=== PATIENT | female | born 1975 | race Caucasian/White ===

== ENCOUNTER 2023-06-30 14:14 | Outpatient (CLI) | payer OTHER | END 2023-06-30 14:15 | disposition home or self-care (01) | LOC: CSHULT 14:14 | PROVIDERS: ATTEND Internal Medicine | DX: R59.9 Enlarged lymph nodes, unspecified (principal) | CPT/HCPCS: 76999 ==

== ENCOUNTER 2023-08-18 09:43 | Emergency (ER) | payer OTHER ==
[2023-08-18] MEDS ORDERED: Ketorolac Tromethamine 30 MG (1 mL) VIAL ONE (10:18)
[2023-08-18] MEDS ORDERED: Dexamethasone 10 MG/ML VIAL ONE (10:18)
== END 2023-08-18 13:35 | disposition home or self-care (01) ==
LOC: CSHERS 09:43
DX: M54.31 Sciatica, right side (principal)
CPT/HCPCS: 72131; 96374; 96375; J1100; J1885

== ENCOUNTER 2023-08-23 13:42 | Outpatient (CLI) | payer OTHER | END 2023-08-23 13:43 | disposition home or self-care (01) | LOC: CSHRAD 13:42 | PROVIDERS: ATTEND Neurological Surgery | DX: M54.16 Radiculopathy, lumbar region (principal); Z98.1 Arthrodesis status; Z98.890 Other specified postprocedural states; R19.5 Other fecal abnormalities | CPT/HCPCS: 72100 ==